=== PATIENT | male | born 1985 | race Caucasian/White ===

== ENCOUNTER 2024-07-28 15:20 | Outpatient (CLI) | payer MEDICAID ==
[~2024-07-28] VITALS: Ht 177.8 cm; Wt 54.4 kg
[2024-07-28] MEDS ORDERED: albuterol 2.5 MG/3 ML nebule NEB ONE (16:25)
[2024-07-28 17:02] VITALS: PULSE 84; RESP 15; O2SAT 99
== END 2024-07-28 23:59 | disposition home or self-care (01) ==
LOC: RT 15:20
PROVIDERS: ATTEND Internal Medicine Cardiovascular Disease
DX: J45.998 Other asthma (principal); R06.02 Shortness of breath
CPT/HCPCS: 94010; 94727; 94729; 94760